=== PATIENT | male | born 1980 | race Caucasian/White ===

== ENCOUNTER 2025-05-22 10:22 | Inpatient (IN) | payer OTHER, SELFPAY ==
[2025-05-22] VITALS (9 sets, daily range): BP systolic 108–157; BP diastolic 73–102; BMI 26.9; BMI 26.6
--- NOTE | 2025-05-22 04:27 | ED.GENMED ---
History of Present Illness
General
Chief Complaint: Skin Problem
Source: patient
Exam Limitations: none
Time Seen by Provider: 05/22/25 04:13
Nursing documentation reviewed up to this point in time: agreed with
History of Present Illness
History of Present Illness:
The patient is a 45-year-old male who presents with a left posterior neck abscess that started a couple of weeks ago. He believes it began as an infected hair follicle. The patient reports having attempted to squeeze the abscess approximately
three times in total but denies using any sharp objects like needles. The patient has been using ichthammol ointment and taking ibuprofen every three to 4 hours for pain management. Last dose 11:30 PM last night. The patient applied warm
compresses at home, which seemed to provide some relief. He describes a sensation of the abscess feeling larger over time. Markedly increased pain especially over the past 4 days. The patient has noticed pain radiating down bilateral arms to his
thumbs. Moderate pain to left shoulder that began today. He has had no weakness. There is no history of coughing no chest pain nor shortness of breath. No recent antibiotic usage. The patient denies any prior history of Methicillin-Resistant
Staphylococcus Aureus (MRSA) infections or diabetes, although there is a family history of diabetes. He does also admit that he has been previous diagnosed with impaired fasting glucose, prediabetes. Recommended to lose weight.
His only daily medication is atorvastatin.
Past History
Past History
ED Past Medical History: Hypercholesterolemia and Other (Prior history of Guillain-Harrison�; history of sepsis related to cholecystitis)
ED Past Surgical History: Cholecystectomy and Other (Hernia repair at age 4)
Social History
Tobacco: Former smoker (Quit 1 year ago, 2023)
Alcohol: Occasional (1-2 drinks per week)
Drug: None
Personal:
Living: with family
Employment: Employed
Family History
Family History: Diabetes and Hypertension; Negative Early CAD, CAD or Sudden
Phy Exam
Physical Exam
Physical Exam:
GENERAL: 45-year-old gentleman appears somewhat older than stated age. Awake and alert, appears in moderate distress, sitting upright on stretcher, head preferentially held sidebent right. Low-grade fever noted. Mildly tachycardic. Moderately
hypertensive.
EYE: pupils equal and reactive. anicteric
NECK: There is a large,(10 cm x 7.5 cm) firm and exquisitely tender abscess left posterior neck with small central area draining yellowish exudate. There is no fluctuance. Mild local erythema. There is moderately restricted range of motion with
head preferentially sidebent right slightly. No anterior edema, trachea is midline and nontender. Mild left posterior auricular adenopathy
ENT: posterior pharynx is clear, oral mucosa is moist. TM clear b/l, nares patent.
CARDIAC: Regular rhythm. Tachycardic. No murmur.
LUNGS: Clear breath sounds bilaterally, no acute respiratory distress, no wheezes/rales/rhonchi
ABDOMEN: Soft, nondistended, without focal tenderness, no r/g, no cvat. normoactive BS.
NEUROLOGICAL: Alert and oriented x3, no focal neuro deficits. Motor strength is 5/5 bilaterally. Gross sensation is intact. Gait is lopez and steady.
SKIN: Warm and dry, normal color, skin intact. No rash.
MUSCULOSKELETAL: No C/C/E. peripheral pulses are full and equal b/l. No palpable tenderness.
PSYCH: Normal and appropriate interaction.
Sepsis
Sepsis Screening
Sepsis Assessment: Sepsis
Sepsis Screen
Sepsis Screen: Sepsis
Date: 05/22/25
Time: 07:01
Course
Orders/Labs/Results
Orders:
Orders
05/22/25 04:20
Complete Blood Count/With Diff Urgent
Comprehensive Metabolic Panel Urgent
Lactic Acid Urgent
05/22/25 04:23
CT Neck With Iv Contrast Urgent
Comment:
Reason For Exam: left post neck abscess
0.9% Sodium Chloride 1000 ml [Nss] 1,000 ml IV BOLUS
Ketorolac [Toradol] 15 mg IV NOW STA
Morphine Sulfate 4 mg IV NOW STA
05/22/25 04:26
Blood Culture Q30M
LORENA Source: Blood/Venous
Specimen Description:
Wound Culture [Wound/Abscess/Other Culture] Urgent
LORENA Source: Abscess
Specimen Description:
Date Specimen was Collected: 05/22/25
Time Specimen was Collected: 04:25
Comment: left post neck
05/22/25 04:34
Blood Culture Q30M
LORENA Source: Blood/Venous
Specimen Description:
05/22/25 05:12
Vancomycin [Vancocin] 2,000 mg 0.9% Sodium Chloride 500 ml [Nss] 500 ml IV NOW
05/22/25 06:45
Insulin Aspart [NOVOLOG vial] 10 units SC NOW STA
05/22/25 08:00
Bedside Glucose- Treatment ONCE
Abnormal Lab Results
05/22/25
04:20
WBC 13.5 H 10^3/uL
(4.8-10.8)
MPV 10.9 H fL
(7.4-10.4)
Abs Immat Gran (auto) 0.1 H 10^3/uL
(0-0.05)
Absolute Neuts (auto) 10.9 H 10^3/uL
(1.4-6.5)
Absolute Monos (auto) 0.9 H 10^3/uL
(0.1-0.6)
Neutrophils % 80.8 H %
(42.2-75.2)
Lymphocytes % 10.4 L %
(20.5-51.1)
Chloride 95 L mmol/L
(98-107)
Glucose 372 H mg/dl
(70-99)
Total Bilirubin 1.4 H mg/dl
(0.2-1.3)
Alkaline Phosphatase 142 H U/L
(38-126)
Total Protein 8.3 H g/dl
(6.3-8.2)
05/22/25 04:20
05/22/25 04:20
Vital Signs
Initial and Last Documented VS:
Initial Vital Signs
Temp Pulse Resp BP Pulse Ox
99.3 F 122 20 157/102 96
05/22/25 03:31 05/22/25 03:31 05/22/25 03:31 05/22/25 03:31 05/22/25 03:31
Last Documented Vital Signs
Temp Pulse Resp BP Pulse Ox
99.3 F 100 21 134/96 96
05/22/25 03:31 05/22/25 05:30 05/22/25 05:30 05/22/25 05:00 05/22/25 04:36
MDM/Problems Addressed
Differential Diagnosis Includes:
The Differential Diagnosis includes, in no particular order and is not limited to:
1. Infected sebaceous cyst
2. Infected hair follicle (folliculitis)
3. Abscess secondary to skin infection
4. Lymphadenitis
5. Cellulitis
6. Parotid abscess
7. Reactive lymphadenopathy
8. Lipoma
9. Epidermoid cyst
10. Pilonidal cyst
MDM/Problems Addressed:
Left posterior neck abscess. Progressive over the past 2 weeks
Low-grade fever noted, tachycardic, concern for sepsis.
Newer onset radicular pain bilateral upper extremities, concern for acute pressure related radiculopathy, other consideration is cervical spine involvement.
Reassuring that there is no focal neurodeficits.
Will medicate for pain, initiate IV fluids.
Labs are pending.
Will check lactic acid, blood cultures, wound culture.
Will check CT of the neck with IV contrast.
Abscess is quite firm, no areas of fluctuance. Does not appear to be amenable to incision and drainage at this time but will check CT assess for potential deep abscess pocket.
*Radiology
Radiology exam reviewed: radiology read reviewed
*Pulse Oximetry
SaO2: 96
Oxygen Mode of Delivery: Room air
Patient hypoxic: no
*Critical Care Note
Total Time (30-74mins, 75-104mins- exclusive of procedures): Not Applicable
Update Note
Update Note:
06:45
Patient is much more comfortable after IV pain medication.
He continues with mild tachycardia but improved. Otherwise remains hemodynamically stable.
Labs reveal elevated white blood cell count of 13.5, left shift.
Significantly elevated glucose of 372 without acidosis. Mildly elevated alkaline phosphatase. Lactic acid is normal at 1.9.
With tachycardia, elevated white blood cell count and abscess, patient meets sepsis criteria.
CT the neck results are pending.
IV vancomycin has been initiated.
Will give a subcu dose of Humalog for elevated glucose.
Will plan to admit to hospitalist service.
ED Attending Note
-
Portions of this chart may have been created with voice recognition software.� Occasional wrong word or��sound alike� substitutions may have occurred due to the inherent limitations of voice recognition software.
Discharge Plan
Departure
Patient Disposition: Admit
Date of Disposition: 05/22/25
Time of Disposition: 06:43
Admit to: Med/Surg
Presentation/result/management discussed w/ accepting MD/DO: Hospitalist
Discharge Problem:
Large skin abscess left posterior neck, New onset diabetes with hyperglycemia, Sepsis
Prescriptions:
No Action
No Meds [No Current Medications]
0
Referrals:
UNKNOWN - PT DOES,NOT KNOW [Unknown Provider]
Interventions
Interventions:
*Risk Screen - Suicide Last Done: 05/22/25 03:31
*General Assessment Last Done: 05/22/25 03:31
*Neglect/Abuse Screening Last Done: 05/22/25 03:31
*ED- Fall Risk Assessment Last Done: 05/22/25 03:31
*ED COVID-19 Vaccine History Last Done: 05/22/25 03:31
Discharge Date and Time
Print Language: SOUTH AFRICAN
[2025-05-22] MEDS: TORADOL 15 MG IV ×2 (04:28→13:01)
[2025-05-22] MEDS: MORPHINE SULFATE 4 MG IV (04:28)
[2025-05-22] MEDS: NSS 1000 IV (04:29)
[2025-05-22 04:36] LABS: Hematocrit 42.7 % (39.0-52.0); Hemoglobin 15.3 g/dL (13.0-18.0); Mean Corp Hgb Conc. 35.8 g/dL (33.0-37.0); Mean Corpuscular Volume 85.6 fL (80.0-94.0); Nucleated Red Blood Cells % 0 % (-); Platelet Count 183 10^3/uL (130-400); Red Cell Dist. Width 11.9 % (11.5-14.5)
[2025-05-22 04:50] LABS: ALT (SGPT) 27 U/L (0-50); AST (SGOT) 20 U/L (17-59); Albumin 5.0 g/dl (3.5-5.0); Alkaline Phosphatase 142 U/L (38-126); Blood Urea Nitrogen 11 mg/dl (9-20); Calcium 10.2 mg/dl (8.4-10.2); Carbon Dioxide 27 mmol/L (22-30); Chloride 95 mmol/L (98-107); Estimated Creatinine Clearance > 125 ml/min; Glucose 372 mg/dl (70-99); Potassium 4.2 mmol/L (3.5-5.1); Sodium 135 mmol/L (135-145); Total Protein 8.3 g/dl (6.3-8.2); eGFR > 60.00
[2025-05-22] MEDS: VANCOCIN 540 MG IV (05:24)
[2025-05-22] MEDS: NOVOLOG vial 10 UNITS SC (06:51)
--- NOTE | 2025-05-22 07:29 | HPS.HSE ---
Family Physician
-
Family Physician: FRANCIS DONG MD
Chief Complaint
-
Left Posterior Neck Cellulitis/superficial Abscess
History of Present Illness
45M hx prediabetes HLD here for progressive Lt posterior neck abscess/cellulitis for the past few weeks. Mild sepsis noted on ED evaluation (tachycardia, leukocytosis), no significant Lactic Acidosis or Hypotension. Afebrile. Endorses family
history of diabetes. Reports polydipsia and polyuria past few month. ED labs significant for hyperglycemia 300s, no anion gap. Denies fever chills nausea vomiting diarrhea constipation abd pain.
Medical History
Past Medical History
Past Medical History: Reports Other (as above)
Past Surgical History: Reports Other (as above)
Social History
Tobacco: Former Smoker
Alcohol: Occasional
Drug: None
Personal:
Living: With Family
Family History
Family History: Not pertinent (reviewed)
Allergies / Home Medications
Allergies reflects when Allergies were last updated in [facility].
Home Medications with original date entered in [facility]
Allergy/Medication List:
Allergies
Allergy/AdvReac Type Severity Reaction Status Date / Time
No Known Allergies Allergy Verified 05/22/25 03:30
Home Medications
atorvastatin 10 mg tablet (Lipitor) 10 mg PO HS 05/22/25
Review of Systems
-
A 12 point ROS was completed and negative except as noted: Yes
Constitutional: Reports Other (as below)
Physical Exam
Vital Signs
Vital Signs
Temp Pulse Resp BP Pulse Ox
99.3 F 100 21 134/96 96
05/22/25 03:31 05/22/25 05:30 05/22/25 05:30 05/22/25 05:00 05/22/25 04:36
Physical Exam
General: Other (as below)
Laboratory Results
-
05/22/25 04:20
05/22/25 04:20
Laboratory Results
Lactic Acid 1.9 mmol/L (0.7-2.0) 05/22/25 04:20
Total Bilirubin 1.4 mg/dl (0.2-1.3) H 05/22/25 04:20
AST 20 U/L (17-59) 05/22/25 04:20
ALT 27 U/L (0-50) 05/22/25 04:20
Alkaline Phosphatase 142 U/L (38-126) H 05/22/25 04:20
Impression/Plan
-
ROS
General: Denies fever chills night sweats, reports weight loss for the past year
Neuro: Denies seizure shaking loss of consciousness dizziness vertigo
Psych: denies depression hallucinations confusion manic episodes
Endocrine: reports polyuria polydipsia denies polyphagia heat/cold intolerance
HEENT: Denies blindness visual disturbances epistaxis
Pulmonary: denies coughing hemoptysis sneezing sob dyspnea on exertion
Cardiovascular: denies chest pain palpitations leg swelling
Hematology: denies signs symptoms of anemia easy bruising/bleeding
Gastrointestinal: denies nausea vomiting diarrhea constipation hematemesis hematochezia melena
Genito-Urinary: denies retention incontinence dysuria
Musculoskeletal: denies joint pain weakness
Dermatology: left sided neck erythema
Physical Exam
General: No pallor, cyanosis, or jaundice.
HEENT: Throat clear. PERRLA Normocephalic atraumatic, neck erythema with left posterior neck pustulant swelling noted
NECK: Supple. No JVD Carotid Bruits
RESPIRATORY: Lungs clear to auscultation. No crackles wheezes stridor
CVS: S1, S2 normal. RRR. No murmur, rub or gallop.
ABDOMEN: Soft, non-tender. No distension. BS+/normal.
EXTREMITIES: No peripheral cyanosis or edema.
MUSIC MANAGER: AOx3. conversant coherent
IMPRESSION:
45M hx prediabetes HLD here for progressive Lt posterior neck abscess/cellulitis for the past few weeks. Mild sepsis noted on ED evaluation (tachycardia, leukocytosis), no significant Lactic Acidosis or Hypotension. Afebrile. Endorses family
history of diabetes. Reports polydipsia and polyuria past few month. ED labs significant for hyperglycemia 300s, no anion gap.
PLAN:
Left Posterior Neck Superficial Abscess/cellulitis
Sepsis Mild Tachycardia and Leukocytosis, no lactic acidosis or hypotension
-Tele admit
-cont empiric Vanc Cefazolin
-Follow blood wound cx's
-MRSA screen
- trend wbc temp
-wound care
-CT Neck appreciated no deep tissue abscess
-Surgery eval requested possible benefit bedside debridement
-Ice packs
-pain control, prn Tylenol Toradol, Morphine for severe breakthrough pain
Likely new onset diabetes
Hyperglycemia, non-anion gap
-follow up A1c
-sliding scale for now
-carb controlled diet
HLD
resumed home statin
DVT ppx Lovenox
GI ppx Protonix
Full Code
I spent a total of 76 minutes with the patient or on the floor. More than 50% of this time involved counseling and coordination of care.
[2025-05-22 09:33] LABS: Glucose - Point of Care 245 mg/dl (70-99)
[2025-05-22] MEDS: MORPHINE SULFATE 2 MG IV (10:20)
--- NOTE | 2025-05-22 11:43 | CM ---
CM reviewed chart and met with pt bedside in ED. Lives with his and 2 children in 1 story home.
Independent in ADLS, personal care and ambulation at baseline.
Confirms prescription coverage.
No hx VN or SNF
PCP: Thalia Wolfe at [place]
Pharmacy: [facility]
Anticipate discharge home, no needs. CM will continue to follow for any discharge planning needs.
--- NOTE | 2025-05-22 12:27 | PHA.VAN.IN ---
Assessment
- Assessment
Renal Function: Unknown baseline (baseline in 2013 ~1.3, no recent data)
Concomitant Antimicrobials: cefazolin
AUC Dosing Plan
- Dosing Variables
Dosing CrCl (ml/min): 125
Vd coefficient (L/kg): 0.7
- Empiric Dosing
Initial / Loading Dose: received 2000mg dose at 0524 this morning
Maintenance Regimen: 1250mg q12h, starting this evening
Estimated AUC (mcg*h/mL): 425
Estimated Peak (mcg*h/mL): 29.2
Estimated Trough (mcg/ml): 9.4
Estimated Half Life (H): 6.4
- Monitoring
No levels ordered at this time: consider as patient approaches steady state
Pharmacokinetics Vancomycin I
- -
Patient Age: 45
Patient Sex: Male
Vancomycin Day #: 1
Indication: Skin And Soft Tissue
Requesting Provider: Dr. Fields
Pertinent Antimicrobial Allergies:
NKDA
Height / Weight:
Height 5 ft 10 in
Actual Weight 84.085 kg
- Vital Signs / Lab Results
Temp Pulse Resp BP Pulse Ox
99.3 F 101 18 130/86 97
05/22/25 03:31 05/22/25 12:18 05/22/25 12:18 05/22/25 12:18 05/22/25 12:18
Lab Results - Hematology
05/22/25
04:20
WBC 13.5 H
Lab Results - Chemistry
05/22/25
04:20
BUN 11
Creatinine 0.7
Estimated Creat Clear > 125
Albumin 5.0
05/22/25
04:20
Lactic Acid 1.9
--- NOTE | 2025-05-22 12:30 | CON.GS ---
Consultation
-
Date/Time Consultation Requested: 05/22/2025,
Date/Time Consultation Performed: 05/22/2025,
Requesting Provider: Juan Fields MD
Performing Provider: Manny Mohamud MD
Reason for Consultation: neck abscess
Medical History
-
Chief Complaint: neck abscess
History of Present Illness:
45-year-old male with a past medical history of diabetes presents to [facility] complaining of left posterior neck pain with abscess over the past 2 weeks. He states it started with an infected ingrown hair and has gotten larger and worse in
nature. He states is getting worse every day. Denies fevers or chills. WBC is 13.5. He remains afebrile but he is tachycardic [id number] of the abdomen pelvis shows marked cellulitis of left posterior neck soft tissue's. We have
been consulted for further surgical recommendations.
Past Medical History
Past Medical History: NIDDM and Other (Hypercholesterolemia, prior history of Guillain-Harrison�, history of sepsis related to cholecystitis)
Past Surgical History: Cholecystectomy and Hernia Repair
Social History
Tobacco: Former Smoker
Alcohol: Occasional
Drug: None
Personal:
Family History
Family History: Reviewed & Not Pertinent
Allergies / Home Medications
Allergy/AdvReac Type Severity Reaction Status Date / Time
No Known Allergies Allergy Verified 05/22/25 03:30
�Medication �Instructions �Recorded �Confirmed �Type
atorvastatin 10 mg tablet (Lipitor) 10 mg PO HS High Cholesterol 05/22/25 05/22/25 History
Review of Systems
-
History Source: Patient
EENT: Other (Neck pain)
A 10 point review of systems was completed, and was negative except as per HPI.
Physical Exam
Vital Signs
Temp Pulse Resp BP Pulse Ox
99.3 F 101 18 130/86 97
05/22/25 03:31 05/22/25 12:18 05/22/25 12:18 05/22/25 12:18 05/22/25 12:18
05/21/25 05/22/25 05/23/25
06:59 06:59 06:59
Actual Weight 85 kg 84.085 kg
Body Mass Index (BMI) 26.6
Lab Results
05/22/25 04:20
05/22/25 04:20
WBC 13.5 10^3/uL (4.8-10.8) H 05/22/25 04:20
Hgb 15.3 g/dL (13.0-18.0) 05/22/25 04:20
Hct 42.7 % (39.0-52.0) 05/22/25 04:20
Plt Count 183 10^3/uL (130-400) 05/22/25 04:20
Abs Immat Gran (auto) 0.1 10^3/uL (0-0.05) H 05/22/25 04:20
Neutrophils % 80.8 % (42.2-75.2) H 05/22/25 04:20
Physical Exam
General: Well Developed, Well Nourished and No Apparent Distress
HEENT: Other (About 4 cm abscess with pus drainage and erythema on the left posterior aspect of the neck)
Neuro: AO x 3
Psych: Calm
Data Reviewed
-
CT Scan: Image Personally Visualized and interpreted, Report Reviewed by me and Discussed with Patient
Labs: Labs Reviewed by me, Discussed with Physician and Discussed with Patient
Old Records: Reviewed
Assessment / Plan
-
Assessment: 45-year-old male with a history of diabetes presents with a left posterior neck abscess that has been ongoing for the past 2 weeks
Plan:
- Bedside I&D of abscess performed
- Continue IV antibiotics
- Regular diet today and n.p.o. at midnight in case needs further surgical debridement
- Pain control
- Wound cultures sent
- Communicated with hospitalist
[2025-05-22] MEDS: ANCEF 10 IV ×2 (12:36→20:28)
[2025-05-22 12:47] LABS: Glucose - Point of Care 210 mg/dl (70-99)
--- NOTE | 2025-05-22 12:49 | W.IMMPOSTOP ---
Surgical Immed Post Op Note
-
Primary Surgeon: Manny Mohamud MD
Assist: Abeba De Jesus PA-C
Pre-op Diagnosis: Left neck abscess
Post-op Diagnosis: Same
Procedure Performed: Incision drainage of left neck abscess
Anesthesia Type: Local
Specimen / Cultures: Cultures
Estimated Blood Loss: 4 cc
Complications: None
Operative Findings: Localized abscess to the left posterior neck with surrounding cellulitis.
[2025-05-22] MEDS: PROTONIX 40 MG PO (13:01)
[2025-05-22] MEDS: NOVOLOG FLEXPEN-LOW RESISTANCE SC (16:22)
[2025-05-22] MEDS: TYLENOL 650 MG PO ×2 (16:23→20:29)
[2025-05-22 17:29] LABS: Glucose - Point of Care 232 mg/dl (70-99)
--- NOTE | 2025-05-22 17:30 | PTCARENOTE ---
Pt received from ED and walked to bed from stretcher without assistance. Dressing on left side of neck dry and intact, pt complaining of pain radiating from L neck to head and down L shoulder. PRN toradol administered- see OCT. POC discussed with
pt. STREETER unrelieved by toradol- prn tylenol administered. @bedside, pt has no needs at this time. Call schwartz within reach, will continue to monitor.
[2025-05-22] MEDS: LOVENOX 40 MG SC (18:30)
[2025-05-22] MEDS: VANCOCIN 275 MG IV (18:31)
[2025-05-22] MEDS: NOVOLOG FLEXPEN-LOW RESISTANCE 2 UNITS SC (18:42)
[2025-05-22 21:17] LABS: Glucose - Point of Care 378 mg/dl (70-99)
[2025-05-22] MEDS: LIPITOR 10 MG PO (22:17)
[2025-05-23] VITALS (11 sets, daily range): BP systolic 15–150; BP diastolic 67–90; BMI 26.6
[2025-05-23] MEDS: ANCEF 10 IV ×2 (03:51→20:02)
[2025-05-23] MEDS: TYLENOL 650 MG PO ×2 (04:07→13:52)
[2025-05-23] MEDS: VANCOCIN 275 MG IV (06:02)
[2025-05-23 06:58] LABS: Glucose - Point of Care 275 mg/dl (70-99)
--- NOTE | 2025-05-23 07:52 | W.PN.HOSP.TC ---
Today's Communication/Plan
-
cont abx
wound/post-op care as per surgery
glycemic control, metformin and Lantus started
Assessment / Plan
Assessment / Plan
Physical Exam
General: No pallor, cyanosis, or jaundice.
HEENT: Throat clear. PERRLA Normocephalic atraumatic
NECK: Supple. No JVD Carotid Bruits, left posterior neck wound dressing clean dry intact
RESPIRATORY: Lungs clear to auscultation. No crackles wheezes stridor
CVS: S1, S2 normal. RRR. No murmur, rub or gallop.
ABDOMEN: Soft, non-tender. No distension. BS+/normal.
EXTREMITIES: No peripheral cyanosis or edema.
BODY SHOP TECHNICIAN: AOx3. conversant coherent
IMPRESSION:
45M hx prediabetes HLD here for progressive Lt posterior neck abscess/cellulitis for the past few weeks. Mild sepsis noted on ED evaluation (tachycardia, leukocytosis), no significant Lactic Acidosis or Hypotension. Afebrile. Endorses family
history of diabetes. Reports polydipsia and polyuria past few month. ED labs significant for hyperglycemia 300s, no anion gap.
PLAN:
Left Posterior Neck Superficial Abscess/cellulitis
Sepsis Mild Tachycardia and Leukocytosis, no lactic acidosis or hypotension
-Tele admit
-cont empiric Cefazolin, per pharmacy preliminary results MSSA, empiric Vanc discontinued
-Follow blood wound cx's
- trend wbc temp
-wound care
-CT Neck appreciated no deep tissue abscess
-Surgery eval appreciated bedside debridement 05/23 OR debridement 05/24
-Ice packs
-pain control, prn Tylenol Toradol, Morphine for severe breakthrough pain
New onset diabetes
Hyperglycemia, non-anion gap
-A1c 15
-sliding scale
-Metformin and Lantus 10U HS
-DM FIRE DEPARTMENT BATTALION CHIEF eval requested
-carb controlled diet
HLD
cont home statin
DVT ppx Lovenox
GI ppx Protonix
Full Code
Discussed with patient and patient's Amparo
I spent a total of 50 minutes with the patient or on the floor. More than 50% of this time involved counseling and coordination of care.
Anticipated Discharge: 24 - 48 hours
Subjective/Interval History
-
Date of Service: May 23, 2025
No acute distress, resting comfortably in bed. Overall reports feeling well, s/p OR debridement left neck wound. Amparo present during evaluation.
Objective Data
-
Labs:
Laboratory Results
05/23/25
07:35
WBC Pending
Hgb Pending
Hct Pending
Plt Count Pending
Sodium Pending
Potassium Pending
Chloride Pending
Carbon Dioxide Pending
BUN Pending
Creatinine Pending
Glucose Pending
Calcium Pending
Vital Signs:
Vital Signs
Temp Pulse Resp BP Pulse Ox
98.6 F 84 18 129/78 98
05/23/25 07:00 05/23/25 07:00 05/23/25 07:00 05/23/25 07:00 05/23/25 07:00
I&O
05/22/25 05/23/25 05/24/25
06:59 06:59 06:59
Intake Total 480 / 480
Balance 480 / 480
[2025-05-23 07:53] LABS: Hematocrit 37.6 % (39.0-52.0); Hemoglobin 13.0 g/dL (13.0-18.0); Mean Corp Hgb Conc. 34.6 g/dL (33.0-37.0); Mean Corpuscular Volume 88.3 fL (80.0-94.0); Platelet Count 169 10^3/uL (130-400); Red Cell Dist. Width 11.9 % (11.5-14.5)
[2025-05-23 08:13] LABS: Blood Urea Nitrogen 12 mg/dl (9-20); Calcium 8.9 mg/dl (8.4-10.2); Carbon Dioxide 28 mmol/L (22-30); Chloride 101 mmol/L (98-107); Estimated Creatinine Clearance > 125 ml/min; Glucose 280 mg/dl (70-99); Magnesium 1.9 mg/dl (1.6-2.3); Potassium 3.9 mmol/L (3.5-5.1); Sodium 135 mmol/L (135-145); eGFR > 60.00
--- NOTE | 2025-05-23 08:19 | PHA.VAN.FU ---
Vancomycin Assessment / Plan
- Assessment
Renal Function: Stable
WBC's are: Trending Down
In the past 24 hrs, patient has been: Afebrile
Concomitant Antimicrobials: CEFAZOLIN
- Dosing Plan
Continue: VANCO 1250MG Q12
- Monitoring Plan
Peak Level: 05/23 @2100
Trough Level: 05/24 @0530
- Follow Up
Pharmacy will continue to follow.
Vancomycin Follow UP
- -
Patient Age: 45
Patient Sex: Male
Vancomycin Day #: 1
Indication: Skin And Soft Tissue
Requesting Provider: Dr. Fields
Pertinent Antimicrobial Allergies:
NKDA
Height / Weight:
Height 5 ft 10 in
Actual Weight 84.085 kg
- Vital Signs / Lab Results
Temp Pulse Resp BP Pulse Ox
98.6 F 84 18 129/78 98
05/23/25 07:00 05/23/25 07:00 05/23/25 07:00 05/23/25 07:00 05/23/25 07:00
Lab Results - Hematology
05/22/25 05/23/25
04:20 07:35
WBC 13.5 H 9.8
Lab Results - Chemistry
05/22/25 05/23/25
04:20 07:35
BUN 11 12
Creatinine 0.7 0.7
Estimated Creat Clear > 125 > 125
Albumin 5.0
05/22/25
04:20
Lactic Acid 1.9
Microbiology Results
05/22/25 04:34 Blood Culture - Preliminary
Blood/Venous No Growth in 24 hours- Final report to follow
05/22/25 04:26 Blood Culture - Preliminary
Blood/Venous No Growth in 24 hours- Final report to follow
05/22/25 12:24 Gram Stain - Preliminary
Abscess
05/22/25 04:26 Gram Stain - Preliminary
Abscess
[2025-05-23] MEDS: NOVOLOG FLEXPEN-MODERATE RESISTANCE 5 UNITS SC ×2 (08:45→13:49)
[2025-05-23] MEDS: PROTONIX 40 MG PO (08:46)
[2025-05-23 10:08] LABS: Glucose - Point of Care 281 mg/dl (70-99)
[2025-05-23 10:43] LABS: Glycohemoglobin (HgbA1c) 15.4 % (4.0-5.6)
[2025-05-23 10:56] LABS: Glucose - Point of Care 244 mg/dl (70-99)
--- NOTE | 2025-05-23 11:52 | W.IMMPOSTOP ---
Surgical Immed Post Op Note
-
Primary Surgeon: Manny Mohamud MD
Pre-op Diagnosis: Left neck abscess
Post-op Diagnosis: Same
Procedure Performed: I&D of left neck abscess
Anesthesia Type: MAC
Specimen / Cultures: none
Estimated Blood Loss: 4cc
Complications: None
Operative Findings: Small amount of residual purulence.
[2025-05-23 12:06] LABS: Glucose - Point of Care 251 mg/dl (70-99)
[2025-05-23] MEDS: ANCEF IV (13:28)
--- NOTE | 2025-05-23 13:30 | PTCARENOTE ---
Pt returned from PACU. VSS. AAOx3. Pt originally has no complaints of pain. Family arrived @bedside, pt now complaining of headache and soreness from positional changes. PRN tylenol administered. Pt eating lunch with family members @bedside, has no
complaints @ this time. Call schwartz is within reach, will continue to monitor.
[2025-05-23 13:41] LABS: Glucose - Point of Care 283 mg/dl (70-99)
[2025-05-23 17:06] LABS: Glucose - Point of Care 385 mg/dl (70-99)
[2025-05-23] MEDS: GLUCOPHAGE 500 MG PO (17:28)
[2025-05-23] MEDS: LOVENOX 40 MG SC (17:28)
[2025-05-23] MEDS: NOVOLOG FLEXPEN-MODERATE RESISTANCE 9 UNITS SC (17:29)
[2025-05-23] MEDS: LIPITOR 10 MG PO (21:25)
[2025-05-23 21:29] LABS: Glucose - Point of Care 223 mg/dl (70-99)
[2025-05-23] MEDS: LANTUS 0.1 UNITS SC (21:34)
[2025-05-24] MEDS: ANCEF 10 IV ×3 (03:56→20:46)
[2025-05-24 03:58] VITALS: BP 117/80
[2025-05-24 07:00] VITALS: BP 124/84
[2025-05-24 07:27] LABS: Glucose - Point of Care 230 mg/dl (70-99)
[2025-05-24] MEDS: GLUCOPHAGE 500 MG PO ×2 (08:08→17:20)
[2025-05-24] MEDS: PROTONIX 40 MG PO (08:08)
--- NOTE | 2025-05-24 08:13 | PN.DE.MGMTRT ---
Insulin Management
- -
05/24/2025: Diabetes Management Consult
45 year old male with hx prediabetes HLD here for progressive Lt posterior neck abscess/cellulitis for the past few weeks. Mild sepsis noted on ED evaluation (tachycardia, leukocytosis), no significant Lactic Acidosis or Hypotension. Reports
polydipsia and polyuria past few month, family history of diabetes. ED labs significant for hyperglycemia 300s, no anion gap. Glucose was 372 on admission. A1C 15.4%, Cr 0.7, eGFR >60
Was started on Metformin 500mg BID, Lantus 10 units @ HS and moderate corrective insulin with meals.
Pt awake, alert, sitting up in bed, offers no complaints, noted fos several chipped and half cracked teeth, able to discuss diabetes care plan and nutrition counseling. at bedside, states she cooks daily at home but decides to eat out
everyday.
He does not exercise or adhere to a specific diet but states he noticed he was starting to lose weight.
Reports a significant family hx of T2DM, his Mom had several amputations and passed on last year from diabetes related complications. His brother +Diabetes
Pre meal glucose yesterday was 244 to 385, received 5-9 units of corrective insulin
HS blood sugar was 223, received Lantus 10 units, FBG 256 V, 230 POC this AM.
Will start AC NovoLog 8 units and increase Lantus to 15 units @ HS.
Cont Metformin 500mg BID and moderate corrective insulin.
Will consult Dietary for nutrition counseling.
Pt will be seen by the diabetes Nurse Educator for monitor and insulin instructions.
Diabetes History
- -
Type of Diabetes: 2 requiring insulin
Pre-Admission Diabetes Regimen
05/23/25
07:35
Creatinine 0.7
Lab Results
Hemoglobin A1c 15.4 % (4.0-5.6) H 05/22/25 04:20
Insulin Pump Settings
IP Diabetes Regimen
05/23/25 05/23/25 05/23/25
07:35 10:07 10:55
Glucose 280 H
POC Glucose 281 H 244 H
05/23/25 05/23/25 05/23/25
12:04 13:40 17:05
Glucose
POC Glucose 251 H 283 H 385 H
05/23/25 05/24/25
21:28 07:25
Glucose
POC Glucose 223 H 230 H
Meal type: Dinner
Meal type: Lunch
Meal type: Breakfast
Amount consumed: 100%
Amount consumed: 100%
Patient Education
[2025-05-24] MEDS: NOVOLOG FLEXPEN 8 UNITS SC ×3 (09:31→17:20)
[2025-05-24] MEDS: NOVOLOG FLEXPEN-MODERATE RESISTANCE 3 UNITS SC (09:32)
[2025-05-24 09:57] LABS: Hematocrit 38.8 % (39.0-52.0); Hemoglobin 13.4 g/dL (13.0-18.0); Mean Corp Hgb Conc. 34.5 g/dL (33.0-37.0); Mean Corpuscular Volume 86.4 fL (80.0-94.0); Platelet Count 198 10^3/uL (130-400); Red Cell Dist. Width 12.0 % (11.5-14.5)
[2025-05-24 10:22] LABS: Blood Urea Nitrogen 12 mg/dl (9-20); Calcium 8.7 mg/dl (8.4-10.2); Carbon Dioxide 30 mmol/L (22-30); Chloride 99 mmol/L (98-107); Estimated Creatinine Clearance > 125 ml/min; Glucose 256 mg/dl (70-99); Magnesium 1.9 mg/dl (1.6-2.3); Potassium 3.6 mmol/L (3.5-5.1); Sodium 136 mmol/L (135-145); eGFR > 60.00
--- NOTE | 2025-05-24 10:47 | WOUNDNOTE ---
NECK (POSTERIOR, L SIDE)
--- NOTE | 2025-05-24 10:48 | WOUNDNOTE ---
NECK (POSTERIOR, L SIDE)
--- NOTE | 2025-05-24 10:50 | WOUNDNOTE ---
[facility] RN note: Patient admitted with L posterior neck cellulitis, abscess, new DM diagnosis. s/p I+D neck abscess by Dr. Mohamud yesterday
See H&P for complete history.
PMH: hernia surgery at age 4, lap cholecystectomy, Guillan Roxton.
Wound Location and type/assessment: Patient admitted with: abscess neck, s/p I+D wound full thickness to subcutaneous layer or muscle. Wound pink with some yellow areas. Mild diffuse erythema around wound. Bilateral skin scabbed abrasions.
Appetite: on 1800 calorie diet.
Pressure redistribution devices in place: [employer] accumax. Patient is mobile.
Plan: Neck dressing changed. Instructed local care as ordered. Patient and stated his sister in law is a nurse who will be doing his wound care at home. Discussed with [employer] Nguy[facility]n.
Care plan to be updated. Surgeon had ordered local wound care for nursing. Will sign off. Call if needed.
Recommend follow up with surgeon or at wound care center upon discharge.
[2025-05-24 11:00] VITALS: BP 129/96
--- NOTE | 2025-05-24 11:52 | W.PN.CRS1 ---
Today's Communication / Plan
-
Continue IV antibiotics
Await wound culture
Wound care
Assessment/Plan
-
POD#1 I&D of left neck abscess
WBC 8.5, vitals: Normal
-Continue regular diet
- Continue IV antibiotics
- Await wound cultures
- Local wound care
- Will need wound center as an outpatient
- Will keep another day for IV antibiotics. Will reexamine wound tomorrow to see if further debridement is required.
Subjective Data
Subjective Data
Date of Service: May 24, 2025
Patient states his pain is 'still there' but he overall feels much better. He denies nausea or vomiting. No other complaints.
Objective Data
-
Vital Signs
Temp Pulse Resp BP Pulse Ox
98.5 F 102 18 129/96 98
05/24/25 11:00 05/24/25 11:00 05/24/25 11:00 05/24/25 11:00 05/24/25 11:00
Intake & Output
05/23/25 05/24/25 05/25/25
06:59 06:59 06:59
Intake Total 480 / 480 1080 / 1080
Balance 480 / 480 1080 / 1080
Intake:
Oral fluids 480 / 480 1080 / 1080
Other:
How many times incontinent 5
MODERATE amount urine
Number of approximated MODERATE 3
amounts of urine
Lab Results
05/24/25 09:02
05/24/25 09:02
Physical Exam
-
General: No Acute Distress and AOx3
HEENT: Other (Posterior neck wound. No pus when palpated. Draining serous material onto gauze. Slightly erythematous around wound but much improved since prior to surgery.)
[2025-05-24 12:02] LABS: Glucose - Point of Care 266 mg/dl (70-99)
[2025-05-24] MEDS: TYLENOL 650 MG PO (12:59)
[2025-05-24] MEDS: NOVOLOG FLEXPEN-MODERATE RESISTANCE 5 UNITS SC (13:45)
--- NOTE | 2025-05-24 14:16 | PTCARENOTE ---
05/24/2025 DIABETES EDUCATION CONSULTATION
I met with patient to review diabetes management. He was told at an urgent care years ago he had prediabetes but did not do anything for follow up or self care. His mother had several limbs amputated and passed from DM complicatoins.
I educated on physiology of T2D, organ damage, managing with medications, monitoring BG, nutrition, activity, sleep and managing stress. I reinforced signs of hyperglycemia, hypoglycemia and hypoglycemia protocol; BS parameters and recommended HbA1c
goals, glucometer and CGM instructions, glucose tracker, medic alert bracelet and outpatient DSME program. Written material provided, including an 1800 calorie meal plan.
I provided patient with a [email or web address] glucometer sample kit. Provided instructions on proper blood sugar testing technique, and demonstration with patient�s participation.
I educated and demonstrated on insulin injection technique, timing, and storage. Discussed long and short acting insulin; onset/peak/duration, and encouraged her to administer his own injections with RN supervision while admitted. Discussed normal
target glucose ranges and a monitoring schedule 15 minutes before each meal when prescribed Novolog, and preprandial AM,
Encouraged patient to follow up with his PCP for post d/c appointment and to monitor medication and blood glucose levels. Provided list of endocrinologists if desired, to contact insurance company to verify in network status. Requested a
prescription for blood sugar testing supplies to be sent to his pharmacy on record. Patient verbalized understanding.
[2025-05-24 15:00] VITALS: BP 111/84
--- NOTE | 2025-05-24 16:11 | CM ---
CM following for discharge planning. Pt currently on IV abx, I&D done yesterday. Possible discharge tomorrow pending wound culture.
--- NOTE | 2025-05-24 16:20 | W.PN.HOSP.TC ---
Today's Communication/Plan
-
Continue IV antibiotics today and changed to p.o. at discharge
Assessment / Plan
Assessment / Plan
45-year-old man with large posterior neck cellulitis with superficial abscess
CT of the neck-findings compatible with marked cellulitis of the left posterior neck soft tissues.
Posterior neck line wound-I&D site with mild discharge. Clean base
Cardiovascular system S1-S2 appreciated
Chest clear to auscultation
Abdomen soft and nontender
# Left posterior cervical area superficial abscess/cellulitis
Sepsis with mild tachycardia and leukocytosis. No lactic acidosis or hypotension
Continue cefazolin-cultures with MSSA,Vancomycin discontinued
Status post debridement at bedside on 05/22/2025 and OR debridement on 05/23/2025
Change to PO when surgeon OK with discharge
# New diagnosis of diabetes with hemoglobin A1c 15
Continue Lantus 15 units, metformin, Novolog AC
Diabetic diet
Diabetic education
# Hyperlipidemia-continue statin
# Smoker-cessation counseling
# DVT prophylaxis-Lovenox
# Full code
Part of this note was created using voice recognition system. Occasional wrong word or��sound alike� substitutions may have inadvertently occurred due to the inherent limitations of voice recognition software. If noted kindly bring it to my
attention for correction.
Anticipated Discharge: Within 24 hours
Subjective/Interval History
-
Date of Service: May 24, 2025
Objective Data
-
Labs:
Laboratory Results
05/24/25
09:02
WBC 8.5
Hgb 13.4
Hct 38.8 L
Plt Count 198
Sodium 136
Potassium 3.6
Chloride 99
Carbon Dioxide 30
BUN 12
Creatinine 0.7
Glucose 256 H
Calcium 8.7
Vital Signs:
Vital Signs
Temp Pulse Resp BP Pulse Ox
98.4 F 94 19 111/84 99
05/24/25 15:00 05/24/25 15:00 05/24/25 15:00 05/24/25 15:00 05/24/25 15:00
I&O
05/23/25 05/24/25 05/25/25
06:59 06:59 06:59
Intake Total 480 / 480 1080 / 1080
Balance 480 / 480 1080 / 1080
[2025-05-24 16:58] LABS: Glucose - Point of Care 181 mg/dl (70-99)
[2025-05-24] MEDS: NOVOLOG FLEXPEN-MODERATE RESISTANCE 1 UNITS SC (17:21)
[2025-05-24] MEDS: LOVENOX 40 MG SC (17:22)
[2025-05-24 19:00] VITALS: BP 106/73
[2025-05-24] MEDS: FLUSH (NSS) 1 FLUSH IV (20:46)
[2025-05-24 21:02] LABS: Glucose - Point of Care 185 mg/dl (70-99)
[2025-05-24] MEDS: LIPITOR 10 MG PO (21:48)
[2025-05-24] MEDS: LANTUS 0.15 UNITS SC (21:49)
[2025-05-24 23:00] VITALS: BP 108/73
[2025-05-25 03:00] VITALS: BP 106/67
[2025-05-25] MEDS: ANCEF 10 IV ×2 (04:10→12:20)
[2025-05-25 07:34] VITALS: BP 115/82
[2025-05-25 07:40] LABS: Glucose - Point of Care 287 mg/dl (70-99)
[2025-05-25 07:46] LABS: Hematocrit 37.8 % (39.0-52.0); Hemoglobin 13.0 g/dL (13.0-18.0); Mean Corp Hgb Conc. 34.4 g/dL (33.0-37.0); Mean Corpuscular Volume 88.1 fL (80.0-94.0); Platelet Count 214 10^3/uL (130-400); Red Cell Dist. Width 11.9 % (11.5-14.5)
--- NOTE | 2025-05-25 08:06 | PN.DE.MGMTRT ---
Insulin Management
- -
05/25/2025: Diabetes Management Consult Follow up
Patient admitted 05/22 with L posterior neck abscess. PMH prediabetes HLD here for progressive Lt posterior neck abscess/cellulitis for the past few weeks. Mild sepsis noted on ED evaluation (tachycardia, leukocytosis), no significant Lactic
Acidosis or Hypotension. Reports polydipsia and polyuria past few month, family history of diabetes. ED labs significant for hyperglycemia 300s, no anion gap. Glucose was 372 on admission. A1C 15.4%, Cr 0.7, eGFR >60
Was started on Metformin 500mg BID, Lantus 10 units @ HS and moderate corrective insulin with meals.
Pt awake, alert, sitting up in bed, offers no complaints, noted for several chipped and half cracked teeth, able to discuss diabetes care plan and nutrition counseling. He does not exercise or adhere to a specific diet but states he noticed he was
starting to lose weight.
Reports a significant family hx of T2DM, his Mom had several amputations and passed on last year from diabetes related complications. His brother +Diabetes
Patient received AC NovoLog 8 units and Lantus 15 units @ HS, Metformin 500mg BID and moderate corrective insulin. Fasting glucose today 287. Will increase HS lantus to 20 units. Pre meal glucose 266 to 181. Pre lunch glucose 249 will increase
AC novolog to 12 units to start with lunch.
Pt will be seen by the diabetes Nurse Educator for monitor and insulin instructions.
Discussed with nurse
Will follow
Diabetes History
- -
Type of Diabetes: 2 requiring insulin
Pre-Admission Diabetes Regimen
05/24/25
09:02
Creatinine 0.7
Lab Results
Hemoglobin A1c 15.4 % (4.0-5.6) H 05/22/25 04:20
Insulin Pump Settings
IP Diabetes Regimen
05/24/25 05/24/25 05/24/25
09:02 12:00 16:57
Glucose 256 H
POC Glucose 266 H 181 H
05/24/25 05/25/25
21:00 07:39
Glucose
POC Glucose 185 H 287 H
Meal type: Lunch
Meal type: Breakfast
Amount consumed: 100%
Amount consumed: 100%
Patient Education
[2025-05-25 08:13] LABS: Blood Urea Nitrogen 15 mg/dl (9-20); Calcium 9.3 mg/dl (8.4-10.2); Carbon Dioxide 33 mmol/L (22-30); Chloride 99 mmol/L (98-107); Estimated Creatinine Clearance > 125 ml/min; Glucose 265 mg/dl (70-99); Magnesium 1.7 mg/dl (1.6-2.3); Potassium 4.0 mmol/L (3.5-5.1); Sodium 137 mmol/L (135-145); eGFR > 60.00
--- NOTE | 2025-05-25 08:57 | W.PN.CRS1 ---
Today's Communication / Plan
-
Local wound care and continue antibiotics.
Discharge when medically clear.
Assessment/Plan
-
Postop day 2 status post I&D of left neck abscess in the OR
- There is no indication for further surgery at this time.
- The wound can be managed with local care and antibiotics as an outpatient.
Subjective Data
Procedure
I&D left neck abscess in ER 05/22/2025
I&D left neck abscess in OR 05/23/2025
Subjective Data
Date of Service: May 25, 2025
He still has some soreness near the incision as expected but overall feels better.
Objective Data
-
Vital Signs
Temp Pulse Resp BP Pulse Ox
98.4 F 92 14 115/82 97
05/25/25 07:34 05/25/25 07:34 05/25/25 07:34 05/25/25 07:34 05/25/25 07:34
Intake & Output
05/24/25 05/25/25 05/26/25
06:59 06:59 06:59
Intake Total 1080 / 1080 1680 / 1680
Balance 1080 / 1080 1680 / 1680
Intake:
Oral fluids 1080 / 1080 1680 / 1680
Other:
How many times incontinent 5
MODERATE amount urine
Number of approximated MODERATE 3 2
amounts of urine
Lab Results
05/25/25 07:11
05/25/25 07:11
Physical Exam
-
General: No Acute Distress
Wound: Other (Left neck-the dressing from yesterday was removed and there is no purulence. The cellulitis persist but has improved.)
[2025-05-25] MEDS: PROTONIX 40 MG PO (09:07)
[2025-05-25] MEDS: GLUCOPHAGE 500 MG PO (09:08)
[2025-05-25] MEDS: NOVOLOG FLEXPEN-MODERATE RESISTANCE 5 UNITS SC (09:08)
[2025-05-25] MEDS: NOVOLOG FLEXPEN 8 UNITS SC ×2 (09:09→13:37)
[2025-05-25 11:07] VITALS: BP 111/72
[2025-05-25 11:48] LABS: Glucose - Point of Care 249 mg/dl (70-99)
--- NOTE | 2025-05-25 11:58 | W.PN.HOSP.TC ---
Today's Communication/Plan
-
Discharge
Assessment / Plan
Assessment / Plan
45-year-old man with large posterior neck cellulitis with superficial abscess
CT of the neck-findings compatible with marked cellulitis of the left posterior neck soft tissues.
Posterior neck line wound-I&D site with mild discharge. Clean base
Cardiovascular system S1-S2 appreciated
Chest clear to auscultation
Abdomen soft and nontender
# Left posterior cervical area superficial abscess/cellulitis
Sepsis with mild tachycardia and leukocytosis. No lactic acidosis or hypotension
Continue cefazolin-cultures with MSSA,change to
Status post debridement at bedside on 05/22/2025 and OR debridement on 05/23/2025
Change to PO when surgeon OK with discharge
# New diagnosis of diabetes with hemoglobin A1c 15
Continue Lantus 20 units, metformin, NovoLog 8U AC
Diabetic diet
Diabetic education
# Hyperlipidemia-continue statin
# Smoker-cessation counseling
# DVT prophylaxis-Lovenox
# Full code
D/W Pharmacy
D/W RN
Total discharge time more than 30 min
Patient is aware that he will need continued follow-up for the wound he could follow with PCP or with wound care center. He will also need adjustments to his insulin.
Part of this note was created using voice recognition system. Occasional wrong word or��sound alike� substitutions may have inadvertently occurred due to the inherent limitations of voice recognition software. If noted kindly bring it to my
attention for correction.
Anticipated Discharge: Today
Subjective/Interval History
-
Date of Service: May 25, 2025
Objective Data
-
Labs:
Laboratory Results
05/25/25
07:11
WBC 7.2
Hgb 13.0
Hct 37.8 L
Plt Count 214
Sodium 137
Potassium 4.0
Chloride 99
Carbon Dioxide 33 H
BUN 15
Creatinine 0.7
Glucose 265 H
Calcium 9.3
Vital Signs:
Vital Signs
Temp Pulse Resp BP Pulse Ox
98.8 F 84 16 111/72 98
05/25/25 11:07 05/25/25 11:07 05/25/25 11:07 05/25/25 11:07 05/25/25 11:07
I&O
05/24/25 05/25/25 05/26/25
06:59 06:59 06:59
Intake Total 1080 / 1080 1680 / 1680
Balance 1080 / 1080 1680 / 1680
--- NOTE | 2025-05-25 12:41 | W.DS.TRANS ---
Addendum entered and electronically signed by Lucina Christianson MD 05/25/25 14:43:
Dictation- [id number]
Original Note:
DC Summary - Dormitory Counselor
-
Discharge Instructions:
Discharge Diagnosis/Procedures Cellulitis posterior neck status post I&D on
and 05/23/2025
Diabetes
High cholesterol
Diet Diabetic, Carb Controlled
Activity As tolerated
Driving Restrictions As prior to admission
Instructions:
Stand-Alone Forms:
Changes to Home Medications: Yes
Discharge Medications:
DC Medications w/original date entered in [employer]
atorvastatin 10 mg tablet (Lipitor) 10 mg PO HS High Cholesterol 05/22/25
blood sugar diagnostic (Contour Next Test Strips) #100 ea 05/24/25
lancets (Microlet Lancet) #100 ea 05/24/25
cephalexin 500 mg capsule 500 mg PO Q6H Infection 7 days #28 caps 05/25/25
insulin aspart U-100 100 unit/mL (3 mL) subcutaneous pen 8 unit (0.08 mL) SC AC Diabetes #15 mL 05/25/25
insulin glargine 100 unit/mL (3 mL) subcutaneous pen (Lantus Solostar U-100 Insulin) 20 unit (0.2 mL) SC QPM Diabetes #15 mL 05/25/25
metformin 500 mg tablet 500 mg PO BID@0800,1700 Diabetes #60 tabs 05/25/25
pen needle, diabetic 31 gauge x 1/4' #100 ea 05/25/25
Home Medication Changes
new
blood sugar diagnostic (Contour Next Test Strips) #100 ea 05/24/25
lancets (Microlet Lancet) #100 ea 05/24/25
cephalexin 500 mg capsule 500 mg PO Q6H Infection 7 days #28 caps 05/25/25
insulin aspart U-100 100 unit/mL (3 mL) subcutaneous pen 8 unit (0.08 mL) SC AC Diabetes #15 mL 05/25/25
insulin glargine 100 unit/mL (3 mL) subcutaneous pen (Lantus Solostar U-100 Insulin) 20 unit (0.2 mL) SC QPM Diabetes #15 mL 05/25/25
metformin 500 mg tablet 500 mg PO BID@0800,1700 Diabetes #60 tabs 05/25/25
pen needle, diabetic 31 gauge x 1/4' #100 ea 05/25/25
Pending Results: No
--- NOTE | 2025-05-25 12:55 | CM ---
Pt is cleared for discharge today to home with outpatient follow-up for the wound he could follow with PCP or with wound care center.
No discharge planning needs identified.
--- NOTE | 2025-05-25 12:59 | PTCARENOTE ---
Addendum entered by Beverley Nova RN 05/25/25 13:12:
addendum: provided patient with sample Radha 3 Plus CGM.
Original Note:
05/25/2025 DIABETES EDUCATION CONSULTATION
Discussed importance of self monitoring glucose with Mr. Nicole. Directed him to [facility] for an OTC glucometer, test strips, and lancets until prescription insurance coverage for diabetes testing supplies can be confirmed. Also recommended he
contact his PBM for verbal confirmation of such coverage.
[2025-05-25] MEDS: NOVOLOG FLEXPEN-MODERATE RESISTANCE 3 UNITS SC (13:36)
[2025-05-25 14:44] VITALS: BP 132/97
== END 2025-05-25 16:03 | disposition home or self-care (01) | DRG 872 ==
LOC: 3 WEST ACU 10:22
PROVIDERS: ADMITTING PHYSICIAN Internal Medicine; ATTENDING PHYSICIAN Hospitalist; CONSULT PHYSICIAN Surgery; EMERGENCY PHYSICIAN Emergency Medicine; FAMILY PHYSICIAN Student in an Organized Health Care Education/Training Program
PROC: 0H94XZZ Drainage of Neck Skin, External Approach (ICD-10-PCS; 2025-05-22)
DX: A41.9 Sepsis, unspecified organism (principal); L03.221 Cellulitis of neck; L02.11 Cutaneous abscess of neck; E11.65 Type 2 diabetes mellitus with hyperglycemia; Z83.3 Family history of diabetes mellitus; E78.00 Pure hypercholesterolemia, unspecified; Z87.891 Personal history of nicotine dependence; Z82.49 Family history of ischemic heart disease and other diseases of the circulatory system
CPT/HCPCS: 70491; 80048; 80053; 82962; 83036; 83605; 83735; 85025; 85027; 87040; 87070; 87147; 87186; 87205; 96361; 96365; 96366; 96372; 96375; 99285; Q9967